=== PATIENT | female | born 1960 | race Caucasian/White ===

== ENCOUNTER 2017-12-07 12:42 | Emergency (ER) | payer OTHER ==
[2017-12-07 12:54] VITALS: BP 149/100; PULSE 73; TEMP 98.6; BMI 38.0
--- NOTE | 2017-12-07 13:56 | PDOC ---
History of Present Illness - General Chief Complaint: Injury Stated Complaint: LT LEG/KNEE PAIN Time Seen by Provider: 12/07/17 13:36 History Source: Patient Exam Limitations: No Limitations - History of Present Illness Initial Comments: CHIEF COMPLAINT: 57 y/o afebrile female c/o left knee pain x 4-5 days. HISTORY OF PRESENT ILLNESS: The patient was on a cruise when she slipped going down the stairs and her left knee banged into a wall. She was able to walk but then caught her left food in a lounge chair the next day and pulled her left knee again. SHe states she has a lot of pain when walking and has only taken tylenol for the pain. Vital signs on arrival are notable for BP of 149/100. REVIEW OF SYSTEMS: GENERAL/CONSTITUTIONAL: No fever/chills. No weakness. No weight change. GENITOURINARY: No dysuria, frequency, or change in urination. MUSCULOSKELETAL: +left knee pain. No neck or back pain. SKIN: No rash or easy bruising. NEUROLOGIC: No headache, vertigo, loss of consciousness, or loss of sensation. PHYSICAL EXAM: VITAL_SIGNS: within normal limits GENERAL_APPEARANCE: alert, cooperative, no obvious discomfort. Patient is walking with limp MENTAL_STATUS: speech clear, oriented X 3, responds appropriately to questions. NEURO: motor intact and sensory intact in injured extremity. EXTREMITIES: No left knee swelling, erythema, warmth or streaking. Spasm and TTP of left distal hamstring muscle. Full ROM of left knee. No joint line TTP b /l. SKIN: warm, dry, good color. Past History - Past Medical History Allergies/Adverse Reactions: Allergies Allergy/AdvReac Type Severity Reaction Status Date / Time No Known Allergies Allergy Verified 12/07/17 12:51 Home Medications: Ambulatory Orders Cyclobenzaprine HCl [Flexeril 10 mg] 10 mg PO BID PRN #12 tablet 12/07/17 Ibuprofen 600 mg PO TID #30 tablet 12/07/17 COPD: No - Suicide/Smoking/Psychosocial Hx Smoking History: Never smoked Information on smoking cessation initiated: No Hx Alcohol Use: No Drug/Substance Use Hx: No Substance Use Type: None *Physical Exam - Vital Signs Last Vital Signs Temp Pulse Resp BP Pulse Ox 98.6 F 73 18 149/100 100 12/07/17 12:51 12/07/17 12:51 12/07/17 12:51 12/07/17 12:51 12/07/17 12:51 Medical Decision Making - Medical Decision Making A/P: 57 y/o female with left hamstring spasm and left knee pain. Plan is to discharge to home with rx for ibuprofen and flexeril. Wrapped left knee in JULIÁN bandage and given crutches. Suggested she f/u with Dr. Bauer. Patient informed flexeril may cause drowsiness. Patient instructed to return to the ER with any worsening or concerning symptoms. The patient verbalizes understanding of all instructions, has no further questions and is awaiting discharge. *DC/Admit/Observation/Transfer Diagnosis at time of Disposition: Knee pain, left Qualifiers: Chronicity: acute Qualified Code(s): M25.562 - Pain in left knee - Discharge Dispostion Disposition: HOME Condition at time of disposition: Good - Prescriptions Prescriptions: Cyclobenzaprine HCl [Flexeril 10 mg] 10 mg PO BID PRN #12 tablet PRN Reason: Muscle Spasms Ibuprofen 600 mg PO TID #30 tablet - Referrals Referrals: Les Fairchild [Primary Care Provider] - Tyson Bauer MD [Staff Physician] - - Patient Instructions Printed Discharge Instructions: How to Use Crutches, How To Perform RICE (Rest , Ice, Compress, Elevate), DI for Knee Pain Additional Instructions: Discharge instructions: -Please follow RICE instructions -A prescription for ibuprofen and flexeril has been sent to your pharmacy; flexeril may cause drowsiness -Use crutches and JULIÁN bandage for comfort -Follow up with Dr. Bauer within 1 week -Return to the ER with any worsening or concerning symptoms - Post Discharge Activity
== END 2017-12-07 14:12 | disposition home or self-care (01) ==
LOC: JERFT 12:42
DX: S89.82XA Other specified injuries of left lower leg, initial encounter (principal); W10.8XXA Fall (on) (from) other stairs and steps, initial encounter; Y93.89 Activity, other specified; Y92.814 Boat as the place of occurrence of the external cause; Y99.8 Other external cause status; Y92.89 Other specified places as the place of occurrence of the external cause
CPT/HCPCS: 99281-25

== ENCOUNTER 2020-02-27 13:13 | Emergency (ER) | payer OTHER ==
[2020-02-27 13:35] VITALS: BP 154/78; TEMP 98.9; BMI 36.3
[2020-02-27] MEDS ORDERED: morphine CARPU-JECT 4 MG/1 ML DISP.SYRIN IVPUSH ONE (13:39)
[2020-02-27] MEDS ORDERED: morphine SULFATE 4 MG/ML VIAL ONE (13:48)
[2020-02-27] MEDS ORDERED: ONDANSETRON 4 MG/2 ML VIAL ONE (13:52)
[2020-02-27] MEDS ORDERED: ONDANSETRON 4 MG/2 ML VIAL IVPUSH ONE (13:53)
[2020-02-27 14:37] LABS: BASO % 1.1 % (0-2.0); EOS % 2.2 % (0-4.5); HEMATOCRIT 48.2 % (32.4-45.2); HEMOGLOBIN 15.9 GM/dL (10.7-15.3); LYMPH % 30.1 % (8-40); MCH 30.8 pg (25.7-33.7); MCHC 33.1 g/dl (32.0-36.0); MEAN CELL VOLUME 93.1 fl (80-96); MEAN PLT VOLUME 9.8 fl (7.5-11.1); MONO % 7.7 % (3.8-10.2); NEUT % 58.9 % (42.8-82.8); PLATELET COUNT 254 K/MM3 (134-434); RBC 5.18 M/mm3 (3.60-5.2); RDW 13.6 % (11.6-15.6)
[2020-02-27] MEDS ORDERED: MAG HYDROX/AL HYDROX/SIMETH 30 ML UNIT-DOSE CUP PO ONE (14:47)
--- NOTE | 2020-02-27 14:48 | PDOC ---
History of Present Illness - General Chief Complaint: Injury Stated Complaint: FALL/LFT HAND INJURY/WEAKNESS Time Seen by Provider: 02/27/20 13:34 History Source: Patient Exam Limitations: No Limitations - History of Present Illness Initial Comments: Ericka is a 59 yo F obese w a hx of HTN who presents to the ER after she tripped and fell down while she was gardening and landed on an outstretched left hand and wrist. She now presents with severe left wrist and arm pain. Rates her pain 10/10, described as sharp, no radiation. She states she is scared to move her left arm because there is too much pain. States she is able to wiggle all of her fingers and everything feels normal. 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 Denies hitting her head, experiencing any LOC. Denies other injuries and denies blood thinners. PCP: Dr. Lamb PSH: None reported Social Hx: Admits to mild wine intake last night. Lives at home, denies smoking or other substance abuse. Allergies: NKA, NKDA Past History - Medical History Allergies/Adverse Reactions: Allergies Allergy/AdvReac Type Severity Reaction Status Date / Time No Known Allergies Allergy Verified 02/27/20 13:35 Home Medications: Ambulatory Orders Cyclobenzaprine HCl [Flexeril 10 mg] 10 mg PO BID PRN #12 tablet 12/07/17 Ibuprofen 600 mg PO TID #30 tablet 12/07/17 COPD: No HTN: Yes - Reproductive History Is Patient Now?: No - Psycho-Social/Smoking History Smoking History: Never smoked Have you smoked in the past 12 months: No Information on smoking cessation initiated: No - Substance Abuse Hx (Audit-C & DAST Scrn) How often the patient has a drink containing alcohol: Never Score: In Men: 4 or > Positive; In Women: 3 or > Positive: 0 Screen Result (Pos requires Nsg. Audit-10AR): Negative In the last yr the pt used illegal drug/Rx for NonMed reason: No Score: Yes response is considered Positive: 0 Screen Result (Positive result requires Nsg. DAST-10): Negative Review of Systems - Review of Systems Able to Perform ROS?: Yes Comments:: CONSTITUTIONAL: Absent: fever, no chills, no fatigue EYES: Absent: visual changes ENT: Absent: ear pain, no sore throat CARDIOVASCULAR: Absent: chest pain, no palpitations RESPIRATORY: Absent: cough, no SOB GI: Absent: abdominal pain, no nausea, no vomiting, no constipation, no diarrhea GENITOURINARY: Absent: dysuria, no frequency, no hematuria MUSKULOSKELETAL: Present: Arthralgia Absent: back pain, no myalgia SKIN: Absent: rash NEURO: Absent: headache *Physical Exam - Vital Signs Last Vital Signs Temp Pulse Resp BP Pulse Ox 98.9 F 110 H 19 154/78 99 02/27/20 13:33 02/27/20 13:33 02/27/20 13:33 02/27/20 13:33 02/27/20 13:33 - Physical Exam LEFT ARM: There is a dinner fork deformity with a skin abrasion on the left ulnar aspect of the wrist. There is no bone protruding from the skin abrasion. Patient is a able to felx and extend the wrist but endorses significant pain while attempting to flex or extend the wrist. Patient can easily wiggle all fingers, hold an OK sign, has 5/5 lumbrical strength. 5/5 sensation in radial, median, and ulnar distributions. 2+ radial and 2+ ulnar pulses There is normal 5/5 strength in the left shoulder and elbow compared to the right arm GENERAL: Well-appearing, well-nourished. Moderate distress. HEENT: Normocephalic, atraumatic. PERRL, EOM intact. CARDIOVASCULAR: Normal S1, S2. Regular rate and rhythm. PULMONARY: No evidence of respiratory distress. Lungs clear to auscultation bilaterally. No wheezing, rales or rhonchi. ABDOMEN: Soft, non-distended, non-tender. EXTREMITIES: Normal ROM in other 3 extremities. No gross deformities. SKIN: Warm, dry. No rash other than left wrist NEUROLOGICAL: No focal neurological deficits. ED Treatment Course - LABORATORY CBC & Chemistry Diagram: 02/27/20 13:55 02/27/20 13:55 - ADDITIONAL ORDERS Additional order review: 02/27/20 13:55 RBC 5.18 MCV 93.1 MCHC 33.1 RDW 13.6 MPV 9.8 Neutrophils % 58.9 Lymphocytes % 30.1 Monocytes % 7.7 Eosinophils % 2.2 Basophils % 1.1 - Medications Given in the ED: ED Medications Discontinued Medications Generic Name Dose Route Start Last Admin Trade Name Roxy PRN Reason Stop Dose Admin Morphine Sulfate 4 mg 02/27/20 13:39 02/27/20 13:53 Morphine Injection - IVPUSH 02/27/20 13:40 4 mg ONCE ONE Administration Ondansetron HCl 4 mg 02/27/20 13:53 02/27/20 13:55 Zofran Injection IVPUSH 02/27/20 13:54 4 mg ONCE ONE Administration Medical Decision Making - Medical Decision Making Ericka is a 59 yo F obese w a hx of HTN who presents to the ER after she tripped and fell down while she was gardening and landed on an outstretched left hand and wrist. She now presents with severe left wrist and arm pain. Rates her pain 10/10, described as sharp, no radiation. She states she is scared to move her left arm because there is too much pain. States she is able to wiggle all of her fingers and everything feels normal. 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 Denies hitting her head, experiencing any LOC. Denies other injuries and denies blood thinners. Vital Signs Temp Pulse Resp BP Pulse Ox 98.9 F 83 19 154/78 99 02/27/20 13:33 02/27/20 17:10 02/27/20 13:33 02/27/20 13:33 02/27/20 13:33 DDx IBNLT: Colles Fx, ulnar styloid fx, neurovascular injury MDM: Patient is neurovascularly intact in the left hand. Plan: Analgesia, hand, reduce, ortho consult/follow up - Hand was hung in ED - Hematoma block performed with 10CC of 1% Lido w/ epi - Hand hung for alignment - Hand reduced and splint placed. - Not ideal alignment - Ortho paged and consulted for assistance - Dr. Garcia came down and helped re-reduce the wrist, placed a new sugar tong splint. - Dr. Garcia said the patient will need surgery on the wrist bc it is significantly comminuted. - Dr. Garcia recommended Ortho fu on monday to check swelling. - Patient neurovascularly intact after the reduction - 2+ radial and ulnar pulses. - Normal movement of all fingers - Full sensation in fingers Dispo: Home with ortho fu and strict return precautions. The patient appears clinically sober, has no evidence of clinical intoxication, is A&O x4, has no sustained nystagmus, and appears to be capable and have capacity to make reasonable decisions. The patient states they are currently in the emergency department, knows who the president is, states the correct time, correct day, and correct month. The patient is ambulatory in ER and has walked around the nursing station multiple times with a straight and steady gait, and is not ataxic. Tolerating PO well, ate a sandwich and drank juice. Denies having any SI or HI. Patient states will not be driving home. I discussed the physical exam findings, ancillary test results and final diagnoses with the patient. I answered all of the patient's questions. The patient was satisfied with the care received and felt comfortable with the discharge plan and treatment plan. The patient will call their primary care physician within 24 hours to arrange follow-up and will return to the Emergency Department with any new, persistent or worsening symptoms. Please note, this clinical encounter is taking place during a federal and state health care emergency attributable to the novel [place] Virus pandemic. The [employer] of the Department of Health and Human Services has declared, pursuant to the Public Health Service Act 319F-3 (42 U.S.C. 247d-6d), that a covered persons activities related to medical countermeasures against COVID-19 will be immune from liability under Federal and State law. Discharge - Discharge Information Problems reviewed: Yes Clinical Impression/Diagnosis: Radius fracture Qualifiers: Encounter type: initial encounter Radius location: distal Fracture type: closed Fracture morphology: Colles' Laterality: left Qualified Code(s): S52.532A - Colles' fracture of left radius, initial encounter for closed fracture Fall Qualifiers: Encounter type: initial encounter Qualified Code(s): W19.XXXA - Unspecified fall, initial encounter Wrist pain, acute Qualifiers: Laterality: left Qualified Code(s): M25.532 - Pain in left wrist Condition: Improved Disposition: HOME - Admission No - Follow up/Referral Referrals: Derrick Lamb MD [Primary Care Provider] - Antonino Garcia MD [Staff Physician] - - Patient Discharge Instructions Patient Printed Discharge Instructions: Colles' Fracture Additional Instructions: Please follow up with Dr. Garcia your new orthopedist on Monday to check your wrist injury and swelling. You must return to the Emergency Department with any new complaints, if your symptoms persist and do not improve or if you develop any other new or worsening concerns. If your wrist starts swelling, becoming red, and extremely painful this can indicate you have an infection in your wrist or the pressure in your wrist compartment is too high. You can take over the counter Tylenol or Advil as needed for pain. Take as directed on the package insert. Do not exceed the recommended dosage. As discussed, please call to follow up with your Primary Care physician in 1-2 days to discuss what happened to you in the emergency room, and make sure you are being looked after and taken care of. Your emergency room visit is not complete without this follow up appointment. Please read the attached handouts for further information about your ER visit and what you should do moving forward. Thank you for coming to the [facility]. We hope you feel better soon! Print Language: MALIAN - Post Discharge Activity - Vital Signs Vital Signs: Vital Signs - Vital Signs Vital signs refused: No Pulse Rate: 83
[2020-02-27 14:49] LABS: INR 0.88 (0.83-1.09); PROTHROMBIN TIME (PATIENT) 10.4 SEC (9.7-13.0)
[2020-02-27 14:52] LABS: ACTIVATED PTT 29.2 SECONDS (25.2-36.5)
[2020-02-27] MEDS ORDERED: MAG HYDROX/AL HYDROX/SIMETH 30 ML UNIT-DOSE CUP ONE (14:54)
[2020-02-27] MEDS ORDERED: LIDOCAINE 1%/EPI 1:100000 (20 ML MULTI DOSE VIAL) ONE (14:55)
[2020-02-27 15:04] LABS: ALBUMIN 3.8 g/dl (3.4-5.0); BILIRUBIN,TOTAL 0.4 mg/dL (0.2-1); BLOOD UREA NITROGEN 16.3 mg/dL (7-18); CALCIUM 8.8 mg/dL (8.5-10.1); CREATININE 0.8 mg/dL (0.55-1.3)
[2020-02-27] MEDS ORDERED: DIPHTH,PERTUSS(ACELL),TET 0.5 ML DISP.SYRIN IM ONE ×2 (15:23→17:13)
--- NOTE | 2020-02-27 15:23 | PDOC ---
Documentation entered by Juana Tao SCRIBE, acting as scribe for Kayleigh Darby MD. Kayleigh Darby MD: This documentation has been prepared by the scribe, Juana Tao SCRIBE, under my direction and personally reviewed by me in its entirety. I confirm that the documentation accurately reflects all work, treatment, procedures, and medical decision making performed by me. Attending Attestation - Resident Resident Name: Jeferson Banks - ED Attending Attestation I have performed the following: I have examined & evaluated the patient, The case was reviewed & discussed with the resident, I agree w/resident's findings & plan, Exceptions are as noted - HPI HPI: 02/27/20 14:45 59-year-old female with a history of hypertension presents emergency department with left wrist pain after a fall 1 hour ago. Patient reports she was gardening and tripped on a step and fell backwards. Patient reached out with her left arm which then struck a barbecue grill on the way down. She felt immediate pain in her wrist. She landed on her behind. Denies head strike or LOC. Denies pain other than to her wrist. 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 - Physicial Exam PE: 02/27/20 15:16 GENERAL: Awake, alert, and fully oriented, in no acute distress but appears uncomfortable EYES: PERRLA, EOMI, sclera anicteric, conjunctiva clear ENT: Oropharynx clear without exudates. Moist mucosa NECK: Normal ROM, supple, no lymphadenopathy, JVD, or masses LUNGS: Breath sounds equal, clear to auscultation bilaterally. No wheezes, and no crackles HEART: Regular rate and rhythm, normal S1 and S2, no murmurs, rubs or gallops ABDOMEN: Soft, nontender, normoactive bowel sounds. No guarding, no rebound. No masses EXTREMITIES: L wrist with gross deformity with dorsal displacement of hand to wrist. Normal sensation distally in all fingers. Motor exam limited 2/2 pain. 2+ radial pulse NEUROLOGICAL: Normal speech, cranial nerves intact, equal strength and sensation b/l SKIN: Warm, Dry, normal turgor, no rashes or lesions noted. - Medical Decision Making 02/27/20 15:22 59yo F presents to the ED with likely L radial fracture Plan for IV, pain control, XR, reduction, reassess Discharge - Discharge Information Problems reviewed: Yes Clinical Impression/Diagnosis: Radius fracture, Fall, Wrist pain, acute - Follow up/Referral Referrals: Derrick Lamb MD [Primary Care Provider] - - Patient Discharge Instructions - Post Discharge Activity
[2020-02-27 17:08] VITALS: PULSE 83
--- NOTE | 2020-02-28 03:03 | CONS ---
DATE OF CONSULTATION: 02/27/2020 CHIEF COMPLAINT: Left wrist pain. HISTORY OF PRESENT ILLNESS: This is a 59-year-old female who suffered a FOOSH while gardening and fell backward. She landed in the left side. She had pain and deformity afterward. She presented to the emergency department. She notes a little bit of tingling, although she has already been given a hematoma block at the time of examination. She has no pain elsewhere. She does have a history of 5th digit deformity, which is chronic, without any pain. No previous wrist injuries. PAST MEDICAL HISTORY: Significant for hypertension. PAST SURGICAL HISTORY: Noncontributory. REVIEW OF SYMPTOMS: Negative for fever, chills, nausea, vomiting, night sweats, dysuria, loss of balance. PHYSICAL EXAMINATION: General: This is a well-appearing female in no acute distress. She is A and O x3. She is seen on a hospital stretcher. She has regular respirations and normal affect. Her pulse is regular. Left Upper Extremity: Demonstrates an abrasion over the ulnar side of the wrist. There is no active drainage at this time. There are no other skin lesions. There is moderate diffuse swelling. There is major deformity. Distally, she states she is intact to light touch. FDS, FDP, ED intact to all digits. Radiographs were taken, demonstrating a comminuted, highly displaced distal radius fracture. ASSESSMENT: Left distal radius fracture. PLAN: I discussed the findings today with the patient and her daughter. I discussed that the fracture is significantly displaced and would best be treated surgically. That being said, in the short term, given the severe displacement, I recommended closed reduction. This will offer resolution to some of the soft-tissue swelling to allow for safe operative care. I reviewed the risks of closed reduction, primarily the risk of infection, and neurovascular injury. We discussed signs of a too-tight splint. After review, the patient elected to proceed. The patient had already been given a hematoma block at the time of her exam. Patient was then hung in traction by the thumb. Manual reduction was effected and a sugar-tong splint was placed. The first splint had persistent displacement, so a second attempt was made, which resulted in satisfactory reduction. The patient was instructed in splint care. She should elevate and ice. We discussed signs of a too-tight splint and these are a medical emergency. She will follow up on Monday in the office to check her swelling. We will likely plan for ORIF within the next 1 to 2 weeks. JAKOB ARREGUIN M.D. [id number]
== END 2020-02-27 17:35 | disposition home or self-care (01) ==
LOC: JER 13:13
PROC: 3E033NZ Introduction of Analgesics, Hypnotics, Sedatives into Peripheral Vein, Percutaneous Approach (ICD-10-PCS; principal; 2020-02-27)
PROC: 3E033GC Introduction of Other Therapeutic Substance into Peripheral Vein, Percutaneous Approach (ICD-10-PCS; 2020-02-27)
PROC: 3E0234Z Introduction of Serum, Toxoid and Vaccine into Muscle, Percutaneous Approach (ICD-10-PCS; 2020-02-27)
DX: S52.532A Colles' fracture of left radius, initial encounter for closed fracture (principal); M25.232 Flail joint, left wrist; W19.XXXA Unspecified fall, initial encounter
CPT/HCPCS: 36415; 73110-TC-LT-FY; 73130-TC-LT-FY; 80053; 85025; 85610; 85730; 86850; 86900; 86901; 90715; 99285-25

== ENCOUNTER 2020-03-05 10:33 | Day surgery (SDC) | payer OTHER ==
[2020-03-03 09:31] VITALS: BMI 36.6
[2020-03-05] MEDS ORDERED: MIDAZOLAM HCL 2 MG/2 ML SINGLE DOSE VIAL ONE (11:32)
[2020-03-05] MEDS ORDERED: ROPIVACAINE HCL 0.5% 30ML VIAL ONE (11:32)
[2020-03-05] MEDS ORDERED: PROPOFOL 20 ML ONE ×4 (12:26)
[2020-03-05] MEDS ORDERED: ONDANSETRON 4 MG/2 ML VIAL ONE (12:27)
[2020-03-05] MEDS ORDERED: DEXAMETHASONE SOD PHOSPHATE 4 MG/1 ML VIAL ONE (12:27)
[2020-03-05] MEDS ORDERED: KETOROLAC TROMETHAMINE 30 MG/1 ML VIAL ONE (12:27)
[2020-03-05] MEDS ORDERED: ceFAZolin SODIUM 1 GM VIAL ONE (12:27)
--- NOTE | 2020-03-05 13:53 | OP ---
Operative Note - Note: Operative Date: 03/05/20 Pre-Operative Diagnosis: Left distal radius fracture Operation: Left wrist ORIF Post-Operative Diagnosis: Same as Pre-op Surgeon: Antonino Garcia Structural Analyst: Carla Marie Anesthesia: General Operative Report Dictated: Yes
[2020-03-05] MEDS ORDERED: oxyCODONE HCL 5 MG TABLET PO PRN ×2 (14:09)
[2020-03-05] MEDS ORDERED: ONDANSETRON 4 MG/2 ML VIAL IVPUSH PRN (14:09)
[2020-03-05] MEDS ORDERED: PROMETHAZINE HCL 25 MG/1 ML VIAL IVPUSH PRN (14:09)
--- NOTE | 2020-03-05 14:14 | OP ---
DATE OF OPERATION: 03/05/2020 PREOPERATIVE DIAGNOSIS: Left distal radius fracture. POSTOPERATIVE DIAGNOSIS: Left distal radius fracture. PROCEDURE: Left distal radius open reduction internal fixation. SURGEON: Antonino Garcia MD TRANSPORT AIRCREWMAN: Carla Marie, physician pharmacy technician assistant whose skillful assistance was necessary for the safe and timely performance of this procedure. She was able to provide limb positioning, traction, assist with fracture reduction as well as the insertion of orthopedic fixation hardware. ANESTHESIA: Regional plus sedation. POSTOPERATIVE CONDITION: Stable. COMPLICATIONS: None. IMPLANTS: Arthrex distal radius plate with 2.4-mm distal and 3.5-mm proximal screws. INDICATIONS: This is a pleasant female who suffered a trip and fell onto her hand. She was initially seen in the emergency room where she was reduced from severe displacement of her distal radius fracture. Given that comminution was present and nonanatomic reduction, it was felt that operative therapy was the best. We discussed the options including nonoperative care. We reviewed operative risks in detail including bleeding, infection, neurovascular injury, need for further surgery, postoperative pain and stiffness, nonunion, malunion, hardware failure or cut-out. We discussed medical risks such as heart attack, stroke, DVT, PE and . We discussed the possibility of removal of hardware. I reviewed the postoperative rehabilitation protocol. I addressed all the patient's questions and concerns. She voiced understanding and elected to proceed. PROCEDURE: Patient was brought to the operating room after administration of a regional block in the preoperative holding area. She was placed supine onto the operating room table. The left upper extremity was then prepped and draped in the usual sterile fashion. A preoperative dose of antibiotics was given and the usual timeout procedure was performed. The incision was then planned out over the wrist. The limb was then exsanguinated and tourniquet was inflated to 250 mmHg. Incision was now carried down through skin, through subcutaneous tissue. Blunt spreading was used to expose the FCR tendon sheath. This was then sharply incised and the FCR was mobilized ulnarly. The fascia was then incised using the scissors and blunt spreading was used to expose the pronator. Part of the pronator had already been ruptured from the fracture site. The more proximal portion was then divided just ulnar to its radial insertion. A periosteal elevator was then used to elevate the pronator and expose the fracture site. Moderate comminution was present. The fracture site was now debrided of any nonviable tissue or tissue which would block the reduction. The plate was then chosen to fit the patient's anatomy. It was fixed to the bone utilizing a single 3.5-mm screw in the oblong hole. Plate fixation was verified visually and fluoroscopically. The 2 distal K-wires were then inserted ensuring that an anatomic reduction was present. The reduction now satisfactory, the distal holes were then drilled and screws were inserted of appropriate length. The additional two 3.5-mm screws were drilled and inserted as well. At this point the entire construct was again verified visually and fluoroscopically. Both fracture reduction and hardware placement were satisfactory. The wound was copiously irrigated. The pronator was repaired using 2-0 Vicryl. The subcutaneous tissue was approximated using 4-0 Vicryl. The skin was then closed using a 4-0 Biosyn. Sterile dressings were placed. Volar splint was placed. The patient was transferred to recovery room in stable condition. Eddi ALMAZAN/[id number]
[2020-03-05] MEDS ORDERED: LOCK ITEM NR ONE (14:25)
[2020-03-05 14:50] VITALS: TEMP 97.7
[2020-03-05 15:39] VITALS: BP 152/76; PULSE 76
== END 2020-03-05 15:39 | disposition home or self-care (01) ==
LOC: FASU 10:33
PROVIDERS: ATTEND Orthopaedic Surgery Sports Medicine
PROC: 0PSJ04Z Reposition Left Radius with Internal Fixation Device, Open Approach (ICD-10-PCS; principal; 2020-03-05 12:39)
DX: S52.502A Unspecified fracture of the lower end of left radius, initial encounter for closed fracture (principal); W01.0XXA Fall on same level from slipping, tripping and stumbling without subsequent striking against object, initial encounter; Y93.9 Activity, unspecified; Y92.9 Unspecified place or not applicable
CPT/HCPCS: 73110-TC-LT-FY; 94760